=== PATIENT | male | born 1960 | race Caucasian/White ===

== ENCOUNTER 2023-09-26 11:21 | Emergency (ER) | payer OTHER ==
[2023-09-26 11:25] VITALS: BP 150/97; PULSE 74; RESP 16; TEMP 98.4; BMI 26.3
== END 2023-09-26 12:12 | disposition home or self-care (01) ==
LOC: FER 11:21
DX: F41.9 Anxiety disorder, unspecified (principal); R42 Dizziness and giddiness
CPT/HCPCS: 99283-25